=== PATIENT | male | born 2005 | race American Indian/Alaskan Native ===

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

== ENCOUNTER 2024-01-21 20:24 | Emergency (ER) | payer BC, MEDICAID | END 2024-01-21 21:33 | disposition home or self-care (01) | LOC: DL.ED 20:24 | DX: S90.112A Contusion of left great toe without damage to nail, initial encounter (principal); W20.8XXA Other cause of strike by thrown, projected or falling object, initial encounter; Y93.B3 Activity, free weights | CPT/HCPCS: 73630-LT; 99282; 99283 ==

== ENCOUNTER 2025-05-02 15:28 | Emergency (ER) | payer BC ==
[2025-05-02 16:15] LABS: PLATELET COUNT,PLT 328 10^3/uL (150-450); RED BLOOD CELL COUNT 5.16 10^6/uL (4.6-6.2); WHITE BLOOD CELL COUNT,WBC 14.9 10^3/uL (5.0-10.0)
[2025-05-02 16:19] LABS: BASOPHILS PERCENT AUTO 0.1 % (0.0-1.0); EOSINOPHILS PERCENT AUTO 0.9 % (1.0-3.0); LYMPHOCYTES PERCENT AUTO 15.0 % (20.5-50.1); MONOCYTES PERCENT AUTO 5.8 % (2-8); NEUTROPHILS PERCENT AUTO 78.2 % (42.2-75.2)
[2025-05-02 16:27] LABS: A/G RATIO 1.2; ALANINE AMINOTRANSFERASE,ALT 54 U/L (16-63); ASPARTATE AMNIOTRANSFERASE,AST 58 U/L (15-37); BILIRUBIN TOTAL 1.2 mg/dL (0.2-1.0); BLOOD UREA NITROGEN,BUN 18 mg/dL (7-18); CARBON DIOXIDE,CO2 20 mmol/L (21-32); CHLORIDE,CL 102 mmol/L (98-107); CREATININE 1.53 mg/dL (0.70-1.30); GLUCOSE RANDOM 119 mg/dL (70-99); POTASSIUM,K 4.0 mmol/L (3.5-5.1); PROTEIN TOTAL,TP 7.6 g/dL (6.4-8.2); SODIUM,NA 139 mmol/L (136-145)
[2025-05-02 16:29] LABS: ESTIMATED GFR 66 mL/min (>=60)
[2025-05-02 16:37] LABS: BAND PERCENT MAN 2 %; SEG NEUTROPHILS PERCENT MAN 72 % (42-75)
[2025-05-02 16:38] LABS: EOSINOPHILS PERCENT MAN 1 % (1-3); LYMPHOCYTES PERCENT MAN 19 % (20-50); MONOCYTES PERCENT MAN 6 % (2-8)
== END 2025-05-02 16:54 | disposition home or self-care (01) ==
LOC: DL.ED 15:28
DX: T75.1XXA Unspecified effects of drowning and nonfatal submersion, initial encounter (principal); Y93.89 Activity, other specified
CPT/HCPCS: 36415; 80053; 83735; 85025; 96360; 99284; J7030